=== PATIENT | male | born 1970 | race Caucasian/White ===

== ENCOUNTER → 2017-07-14 | Outpatient (CLI) | payer BC ==
[~2017-07-14] MED LIST: ATEN25TA PO; CIAL5TAB PO; FLOM5CAP PO
[2017-07-14 09:22] LABS: MEAN CORPUSCULAR VOLUME 86.7 fl (80.0-96.0); RED CELL DISTRIBUTION WIDTH 13.7 % (11.5-14.5); WHITE BLOOD COUNT 2.1 K/mm3 (4.0-10.0)
--- NOTE | 2017-07-14 09:29 | REP ---
Clinical: Mass. Lung. Technique: PA and lateral. Comparison: None. Findings: The cardiac silhouette is normal. Subtle increased perihilar and infrahilar opacity and peribronchial thickening suggest the possibility of bronchitis as well as viral pneumonia. Adenopathy cannot be excluded. No discrete focal consolidation, effusion, or pneumothorax. Skeletal structures are intact. Impression: Subtle perihilar/infrahilar opacities and peribronchial thickening suggesting bronchitis / viral pneumonia. Hilar adenopathy cannot be excluded. Follow-up chest CT with contrast may be warranted if the symptoms persist. Signed by Jermaine Douglass MD 07/14/2017 09:21 A
[2017-07-14 09:31] LABS: MEAN CORPUSCULAR HGB CONC 36.9 g/dl (32.0-36.5)
[2017-07-14 09:36] LABS: INR 1.13
[2017-07-14 09:45] LABS: ANION GAP 9 MEQ/L (8-16); BLOOD UREA NITROGEN 17 MG/DL (7-18); CALCIUM LEVEL 8.9 MG/DL (8.5-10.1); CARBON DIOXIDE LEVEL 29 MEQ/L (21-32); CHLORIDE LEVEL 104 MEQ/L (98-107); CREATININE FOR GFR 1.26 MG/DL (0.70-1.30); GLOMERULAR FILTRATION RATE > 60.0 (>60); GLUCOSE, FASTING 190 MG/DL (70-105); POTASSIUM SERUM 4.3 MEQ/L (3.5-5.1); SODIUM LEVEL 142 MEQ/L (136-145)
--- NOTE | 2017-07-14 21:39 | ECGEPIP ---
Stationary ECG Study [facility] Test Date: 2017-07-14 Pat Name: ARYAN DIXON Department: Room: - Gender: M Title Assistant: VERNON : 1970 Requested By: Asa Vegas Order Number: [id number] Reading MD: Lang Wall Measurements Intervals [place] Rate: 82 P: 50 KS: 165 QRS: 8 QRSD: 94 T: 31 QT: 365 QTc: 426 Interpretive Statements Normal sinus rhythm Normal EKG Comparison tracing not on file Electronically Signed On 07-14-2017 21:38:55 EDT by Lang Wall
== END ==
LOC: M LAB 08:07
PROVIDERS: ATTEND Thoracic Surgery (Cardiothoracic Vascular Surgery)
DX: Z01.818 Encounter for other preprocedural examination (principal); R91.8 Other nonspecific abnormal finding of lung field

== ENCOUNTER 2017-07-15 10:04 | Day surgery (SDC) | payer BC ==
[~2017-07-15] VITALS: Ht 185.4 cm; Wt 115.7 kg
[~2017-07-15 10:04] MED LIST changes: +LR 1,000 ML IV ONE
[2017-07-15] MEDS ORDERED: LIDOCAINE 2% INJ 100 MG/5 ML SDV (FOR ANES.) As Ordered ONE (10:22)
[2017-07-15] MEDS ORDERED: PROPOFOL 200 MG/20 ML VIAL As Ordered ONE ×2 (10:22→11:57)
[2017-07-15] MEDS ORDERED: ROCURONIUM BROMIDE 50 MG/5 ML VIAL/SYRINGE As Ordered ONE ×2 (10:22→11:57)
[2017-07-15] MEDS ORDERED: fentaNYL 100 MCG/2 ML INJECTION (J3010) As Ordered ONE (10:22)
[2017-07-15] MEDS ORDERED: MIDAZOLAM INJ 2 MG/2 ML VIAL (J2250) As Ordered ONE (10:22)
[2017-07-15] MEDS ORDERED: CETACAINE SPRAY 20GM (FLOOR STOCK) As Ordered ONE (10:27)
[2017-07-15] MEDS ORDERED: BUPIVACAINE LIPOSOME/PF 1.3% 20 ML VIAL (13.3MG/ML)(EXPAREL) As Ordered ONE (10:27)
[2017-07-15] MEDS ORDERED: THROMBIN SOLN 20,000 UNITS KIT As Ordered ONE (10:27)
[2017-07-15] MEDS ORDERED: EPINEPHrine 1MG/10ML SYRINGE 1.5IN As Ordered ONE (10:27)
[2017-07-15] MEDS ORDERED: MUPIROCIN 2% OINT 22 GM TUBE TOP ONE (11:00)
[2017-07-15] MEDS ORDERED: dexameTHASONE 4 MG/ML 1ML VIAL (J1100) As Ordered ONE (11:59)
[2017-07-15] MEDS ORDERED: ONDANSETRON 4MG/2ML VIAL (J2405) As Ordered ONE (12:22)
[2017-07-15] MEDS ORDERED: KETOROLAC 60 MG/2 ML VIAL (J1885) As Ordered ONE (12:23)
[2017-07-15] MEDS ORDERED: ePHEDrine SULFATE 25 MG/5 ML(5MG/ML) SYRINGE As Ordered ONE (12:25)
[2017-07-15] MEDS ORDERED: GLYCOPYRROLATE INJ 0.2 MG/ML 2 ML VIAL As Ordered ONE (12:49)
[2017-07-15] MEDS ORDERED: NEOSTIGMINE 1MG/ML 5 ML SYRINGE (J2710) As Ordered ONE (12:49)
[2017-07-15] MEDS ORDERED: fentaNYL 100 MCG/2 ML INJECTION (J3010) IV PRN (13:30)
[2017-07-15] MEDS ORDERED: PERCOCET 5MG/325MG TAB PO PRN (13:45)
[2017-07-15 14:20] VITALS: BP 134/77
--- NOTE | 2017-07-15 14:37 | REP ---
PORTABLE CHEST X-RAY: Sitting AP view. HISTORY: Status post bronchoscopy and mediastinoscopy . Comparison study July 14, 2017. FINDINGS: There is bilateral perihilar plate-like atelectasis which is a new finding. Pleural angles are sharp. No pneumothorax is seen. Mediastinum is unchanged. IMPRESSION: Bilateral perihilar plate-like atelectasis. Signed by Charly Galaviz MD 07/15/2017 06:35 P
--- NOTE | 2017-07-16 16:52 | RO ---
DATE OF PROCEDURE: 07/15/2017 PREPROCEDURE DIAGNOSIS: Mediastinal lymphadenopathy. POSTPROCEDURE DIAGNOSIS: Noncaseating granulomas consistent with sarcoidosis. PROCEDURE: Mediastinoscopy and bronchoscopy. SURGEON: Dr. Asa Glasgow BUTT WELDER: ANESTHESIA: FINDINGS: The bronchoscopy revealed normal branching tracheobronchial tree. There are no endobronchial lesions. There were a moderate amount of secretions, which were suction aspirated. Mediastinoscopy revealed a very large node in the tracheoesophageal groove on the right hand side. It was quite mobile, and it was copiously biopsied. Care was taken not to interrupt the tracheoesophageal groove and damage the recurrent laryngeal nerve. DESCRIPTION OF PROCEDURE: Under satisfactory general anesthesia and single-lumen tube endotracheal intubation, bronchoscope was passed in the tracheobronchial tree. Each tracheobronchial segment was suction aspirated and thoroughly inspected. There were no endobronchial lesions seen. Coby was sharp. Patient was then prepped and draped in the usual sterile fashion, and a standard mediastinoscopy incision just above the sternal notch was made. Patient had quite a bit of adipose tissue, and I did spend some time getting down to the pretracheal fascia. After I trimmed the pretracheal fascia, the innominate artery was swept aside and the mediastinoscope was placed. From knowledge of the PET scan which showed a very highly metabolic node in the tracheoesophageal groove, mediastinoscope was directed towards that area on the right side. Node came into view quite quickly. It was, therefore, copiously biopsied and sent for frozen section and permanent section along with cultures and sensitivity for aerobic, anaerobic, fungal, and tuberculosis (TB). After achieving adequate hemostasis with thrombin and Gelfoam and with pressure from a sponge. The strap muscles, which were divided on entry, were reapproximated by use of #3-0 Vicryl running suture. The subcutaneous tissue, by use of the same and the skin by use of subcuticular #4-0 Monocryl suture. It should be noted that cautery was not used in and around the biopsied lymph node, again for fear of damaging the recurrent laryngeal nerve.
== END 2017-07-15 14:35 | disposition home or self-care (01) ==
LOC: M SDC 10:04
PROVIDERS: ATTEND Thoracic Surgery (Cardiothoracic Vascular Surgery)
DX: I88.8 Other nonspecific lymphadenitis (principal); I10 Essential (primary) hypertension; N40.0 Benign prostatic hyperplasia without lower urinary tract symptoms; Z98.84 Bariatric surgery status; Z79.899 Other long term (current) drug therapy; Z88.8 Allergy status to other drugs, medicaments and biological substances; Z88.2 Allergy status to sulfonamides; Z91.09 Other allergy status, other than to drugs and biological substances
CPT/HCPCS: 31622; 36415; 39402; 71010; 86850; 86870; 86900; 86901; 87070; 87075; 87102; 87116; 87206; 88305; J1100; J1885; J2250; J2405; J2710; J3010

== ENCOUNTER → 2017-07-23 | Outpatient (CLI) | payer BC ==
[~2017-07-23] MED LIST changes: -LR 1,000 ML IV ONE
--- NOTE | 2017-07-23 09:34 | REP ---
Clinical: Adenopathy. Technique: PA and lateral. Comparison: 07/15/2017. Findings: The mediastinum and cardiac silhouette are relatively stable. Very subtle prominence to the left hilum is again noted and mild adenopathy cannot be excluded. Increased infrahilar markings suggest bronchitis and should be correlated clinically. No focal consolidation. No effusion. No pneumothorax. Skeletal structures are intact. Impression: Correlation with physical examination is recommended to exclude bronchitis. Subtle left hilar prominence is again noted and while this may represent underlying pulmonary vasculature, mild adenopathy cannot be excluded. Signed by Jermaine Douglass MD 07/23/2017 09:25 A
== END ==
LOC: M SMT 08:59
PROVIDERS: ATTEND Thoracic Surgery (Cardiothoracic Vascular Surgery)
DX: R59.0 Localized enlarged lymph nodes (principal)

== ENCOUNTER → 2021-08-03 | Outpatient (CLI) | payer BC ==
[~2021-08-03] MED LIST changes: +ENBR50IN6 SC; +FAMO40TA3 PO; +FLOM0.4C39 PO; -FLOM5CAP PO; +METF500T13 PO; +METO1TAB7 PO; +ZARX0.05 SC
== END ==
LOC: M LABSMTC 10:48
PROVIDERS: ATTEND Anesthesiology
DX: Z01.818 Encounter for other preprocedural examination (principal); Z11.52 Encounter for screening for COVID-19